=== PATIENT | male | born 1975 ===

== ENCOUNTER 2017-09-18 15:20 | Inpatient (IN) | payer BC, OTHER ==
--- NOTE | 2017-09-18 17:05 | C.PDOC ---
Addendum entered and electronically signed by Socorro Bailon PA 09/18/17 18: 59: Physician Patient Turnover Patient Signed Over To: Rashaun Rahman Handoff Comments: Pending detox admission Original Note: History Of Present Illness <Socorro Bailon - Last Filed: 09/18/17 18:58> <Rashaun Rahman - Last Filed: 09/18/17 19:52> 42yo male with history of alcoholism, comes to ER requesting detox from alcohol. Patient states that he has a history of gastritis and has had alcoholic gastric intermittently, but denies vomiting or abdominal pain at this time. Patient denies any suicidal or homicidal ideation. He offers no additional medical complaints. (Socorro Bailon) History Per: Patient History/Exam Limitations: no limitations <Socorro Bailon - Last Filed: 09/18/17 18:58> <Rashaun Rahman - Last Filed: 09/18/17 19:52> Time Seen by Provider: 09/18/17 16:19 Chief Complaint (Nursing): Abdominal Pain Past Medical History Reviewed: Historical Data, Nursing Documentation, Vital Signs - Medical History PMH: No Chronic Diseases Surgical History: No Surg Hx Family History: States: No Known Family Hx - Social History Hx Alcohol Use: Yes Hx Substance Use: No - Immunization History Hx Tetanus Toxoid Vaccination: No Hx Influenza Vaccination: No Hx Pneumococcal Vaccination: No <Socorro Bailon - Last Filed: 09/18/17 18:58> Vital Signs: Last Vital Signs Temp 98.4 F 09/18/17 15:35 Pulse 72 09/18/17 18:06 Resp 20 09/18/17 18:06 BP 114/78 09/18/17 18:06 Pulse Ox 99 09/18/17 18:39 Review Of Systems Constitutional: Negative for: Fever, Chills Cardiovascular: Negative for: Chest Pain Respiratory: Negative for: Shortness of Breath Gastrointestinal: Negative for: Abdominal Pain Psych: Negative for: Suicidal ideation <Socorro Bailon - Last Filed: 09/18/17 18:58> Physical Exam - Physical Exam Appears: Non-toxic Skin: Normal Color, No Rash Head: Atraumatic, Normacephalic Eye(s): bilateral: Normal Inspection Oral Mucosa: Moist, Other (alcohol on breath) Throat: No Erythema, No Exudate Neck: Normal ROM, Supple Chest: Symmetrical, No Tenderness Cardiovascular: Rhythm Regular, No Friction Rub, No Murmur Respiratory: Normal Breath Sounds Gastrointestinal/Abdominal: Bowel Sounds (active), Soft, No Tenderness, No Guarding, No Rebound Back: Normal Inspection, No CVA Tenderness Extremity: Normal ROM, No Pedal Edema, No Swelling Neurological/Psych: Oriented x3, Normal Speech Gait: Steady <Socorro Bailon - Last Filed: 09/18/17 18:58> ED Course And Treatment - Laboratory Results Result Diagrams: 09/18/17 17:55 09/18/17 17:36 O2 Sat by Pulse Oximetry: 99 (RA) Pulse Ox Interpretation: Normal Progress Note: Labs, UA and UDS ordered. Patient given ativan, and zofran. <Socorro Bailon - Last Filed: 09/18/17 18:58> - Laboratory Results Result Diagrams: 09/18/17 17:55 09/18/17 17:36 <Saphazel,Valdi - Last Filed: 09/18/17 19:52> Medical Decision Making <Socorro Bailon - Last Filed: 09/18/17 18:58> <SaphazelValdi - Last Filed: 09/18/17 19:52> Medical Decision Making: Patient reports that he is feeling anxious and having tremors, Ativan ordered. The patient is medically cleared for psych/detox eval and/or admission. (Socorro Bailon) Disposition - Disposition Disposition Time: 18:36 - POA Present On Arrival: None <Socorro Bailon - Last Filed: 09/18/17 18:58> Discussed With : Sadi Sloan Comment: accepted the pt on his service and took over the care at 7:52 PM Doctor Will See Patient In The: Hospital Counseled Patient/Family Regarding: Studies Performed, Diagnosis - POA Present On Arrival: Poor Glycemic Control <SaphazelValdi - Last Filed: 09/18/17 19:52> - Disposition Disposition: HOSPITALIZED Condition: FAIR Forms: [employer] (Lithuanian) - Clinical Impression Clinical Impression: Alcohol dependence - 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 - Scribe Statement The provider has reviewed the documentation as recorded by the Scribe <Socorro Bailon - Last Filed: 09/18/17 18:58> <Rashaun Rahman - Last Filed: 09/18/17 19:52> - Scribe Statement Shannon Jack Provider Attestation: All medical record entries made by the Janelleibe were at my direction and personally dictated by me. I have reviewed the chart and agree that the record accurately reflects my personal performance of the history, physical exam, medical decision making, and the department course for this patient. I have also personally directed, reviewed, and agree with the discharge instructions and disposition. (Socorro Bailon) Decision To Admit <Socorro Bailon - Last Filed: 09/18/17 18:58> - Pt Status Changed To: Hospital Disposition Of: Inpatient - Admit Certification Admit to Inpatient:: After my assessment, the patient will require hospitalization for at least two midnights. This is because of the severity of symptoms shown, intensity of services needed, and/or the medical risk in this patient being treated as an outpatient. - InPatient: Physician Admission Certification:: After my assessment, the patient will require hospitalization for at least two midnights. This is because of the severity of symptoms shown, intensity of services needed, and/or the medical risk in this patient being treated as an outpatient. - . Bed Request Type: Telemetry Admitting Physician: Sadi Sloan <Rashaun Rahman - Last Filed: 09/18/17 19:52> - . Patient Diagnosis: Alcohol dependence
[2017-09-18 17:52] LABS: ALB/GLOB RATIO 1.5 (1.0-2.1); ALBUMIN 4.9 g/dL (3.5-5.0); CALCIUM 9.6 mg/dl (8.6-10.4); GFR AFRICAN-AMERICAN > 60; GFR NON-AFRICAN AMERICAN > 60
[2017-09-18 17:54] LABS: URINE BACTERIA RARE (<OCC); URINE BILIRUBIN NEGATIVE (NEGATIVE); URINE BLOOD NEGATIVE (NEGATIVE); URINE CALCIUM OXALATE CRYSTALS OCC /hpf (<OCC); URINE CLARITY Hazy (Clear); URINE COLOR Amber (YELLOW); URINE GLUCOSE (UA) NORMAL (Normal); URINE LEUKOCYTE ESTERASE NEG Leu/uL (Negative); URINE PROTEIN 2+ mg/dL (NEGATIVE)
[2017-09-18 18:03] LABS: BASO % 0.6 % (0.0-2.0); EOS % 1.2 % (0.0-4.0); HEMOGLOBIN 14.5 g/dL (12.0-18.0); LYMPH # 1.2 K/uL (1.0-4.3); LYMPH % 31.2 % (20.0-40.0); MEAN CELL VOLUME 86.9 fL (80.0-94.0); MEAN CORPUSCULAR HGB CONC 34.6 g/dL (33.0-37.0); MEAN PLATELET VOLUME 7.3 fL (7.2-11.7); MONO # 0.3 K/uL (0.0-0.8); NEUT # 2.2 K/uL (1.8-7.0); NRBC % 0.1 % (0.0-2.0); RBC 4.82 Mil/uL (4.40-5.90); RED CELL DISTRIBUTION WIDTH 13.7 % (11.5-14.5); WHITE BLOOD COUNT 3.9 K/uL (4.8-10.8)
[2017-09-18 18:10] LABS: ALT/SGPT 117 U/L (21-72); AST/SGOT 227 U/L (17-59); BLOOD UREA NITROGEN 7 mg/dL (9-20)
[2017-09-18 18:28] LABS: BARBITURATES, UR NEGATIVE (NEGATIVE); OPIATES, UR NEGATIVE (NEGATIVE); PHENCYCLIDINE, UR NEGATIVE (NEGATIVE)
[2017-09-18 18:31] LABS: BENZODIAZEPINES, UR POSITIVE (NEGATIVE)
--- NOTE | 2017-09-18 20:11 | PCM.BM ---
<Komal Osuna - Last Filed: 09/18/17 20:10> Treatment Plan Problems - Problems identified on initial assessmt Potential for alcohol withdrawal Date Initiated: 09/18/17 Time Initiated: 20:11 Assessment reference: NA Status: Active Treatment assets and liabiliti Patient Assests: ADL independent, negotiates basic needs, cognitively intact Patient Liabilities: substance abuse (Alcohol) - Milieu Protocol Maintain good personal hygiene: daily Encourage regular showers, daily Remind patient to perform daily oral care, daily Assist patient to perform ADL's Conduct patient checks and document Observation sheet: Q15 minutes Maintain personal safety: every shift Educate patient to report safety concerns to staff, every shift Monitor environment for contraband/sharps Medication safety: Monitor for expected outcome, potential side effects: every shift, Assess barriers to learning: every shift, Assess readiness for medication education: every shift <Ludivina Sapp - Last Filed: 09/19/17 22:39> - Diagnosis (1) Alcohol dependence Status: Acute Interventions: 09/19/17 22:38 * Assess 7x/week regarding severity of withdrawal * Educate regarding risks, benefits, side effects and alternatives of medications * Use Motivational Interviewing for abstinence * Use CBT for relapse prevention * Medication management for withdrawal symptoms * Encourage medication assisted treatment *
[2017-09-18] MEDS: Aluminum Hydroxide/Magnesium Hydroxide Susp (30 mL) PO PRN (22:06)
[2017-09-19] MEDS: Multiple Vitamins Tab PO SCH (09:59)
--- NOTE | 2017-09-19 12:21 | PCM.PSYCH ---
Initial Psychiatric Evaluation - Initial Psychiatric Evaluation Type of Admission: Voluntary Legal Status: Capacity Chief Complaint (in patient's own words): "Too much alcohol" History of Present Illness and Precipitating Events: Pt is seen, chart reviewed, and case discussed. He is a 42 y/o [place] male, with 2 children age 17 and 9. 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 He is here because he wants to "stop drinking." Went on a family vacation to [facility] August 29 where he started drinking a lot for 10 days and kept drinking after he got back. Says that he's always had problems with alcoholism, started drinking socially at 24 and then it became worse. Says he drinks more than he eats. Denies and drug or tobacco use. He goes to AA meetings. Has never been to detox, tried to go into rehab this time but was told he had to come to detox first. Denies DUI's or any legal trouble. Past psych hx: has anxiety, which he says is when he starts drinking, and depression Past medical hx: denies Family psych hx: denies, but does say that his cousin also has a drinking problem Current Medications: Active Medications Generic Name Dose Route Start Last Admin Trade Name Freq PRN Reason Stop Dose Admin Al Hydrox/Mg Hydrox/Simethicone 30 ml 09/18/17 21:57 09/18/17 22:06 Maalox 30 Ml PO 30 ml Q8 PRN Administration Indigestion / Heartburn Clonidine HCl 0.1 mg 09/19/17 08:54 Catapres PO Q4H PRN Symptoms of alcohol withdrawl Folic Acid 1 mg 09/19/17 10:00 09/19/17 10:00 Folic Acid PO 1 mg DAILY MAVIS Administration Lorazepam 1 mg 09/19/17 08:54 Ativan PO Q4H PRN Symptoms of alcohol withdrawl Lorazepam 2 mg 09/19/17 09:00 09/19/17 09:59 Ativan PO 09/24/17 08:59 2 mg Q6H MAVIS Administration Taper Multivitamins 1 tab 09/19/17 10:00 09/19/17 09:59 Hexavitamin PO 1 tab DAILY MAVIS Administration Ondansetron HCl 4 mg 09/18/17 21:57 09/19/17 11:51 Zofran Tab PO 4 mg Q8 PRN Administration Nausea/Vomiting Thiamine HCl 100 mg 09/19/17 10:00 09/19/17 09:59 Vitamin B1 Tab PO 100 mg DAILY MAVIS Administration Trazodone HCl 100 mg 09/19/17 22:00 Desyrel PO HS PRN Insomnia Past Psychiatric History - Past Psychiatric History Previous Treatment History: None Pertinent Medical Hx (Current Medical&Sleep Prob, Allergies): Allergies Allergy/AdvReac Type Severity Reaction Status Date / Time No Known Allergies Allergy Verified 09/18/17 15:38 No Known Home Med 09/18/17 Review of Systems - Neurological Neurological: Tremor - Psychiatric Psychiatric: Abnormal Sleep Pattern, Anxiety, Change in Appetite, Depression, Difficulty Concentrating. absent: Hallucinations, Homicidal Ideation, Suicidal Ideation Mental Status Examination - Personal Presentation Personal Presentation: Looks stated age - Affect Affect: Constricted - Motor Activity Motor Activity: Calm - Reliability in Providing Information Reliability in Providing Information: Good - Speech Speech: Organized - Mood Mood: Depressed, Anxious - Formal Thought Process Formal Thought Process: No Impairment - Cognitive Functions Orientation: Person, Place, Situation, Time Sensorium: Alert Attention/Concentration: Attentive Estimate of Intelligence: Average Judgement: Intact, as evidence by: Insight regarding need for hospitalization Memory: Recent intact, as evidence by: Ability to recall events of the day, Remote intact, as evidenced by: Abilit to recall sig. life events - Risk Risk: Withdrawal, Diminished functioning - Strength & Assets Inventory Strength & Assets Inventory: Cooperative - Limitations Limitations: Living alone DSM 5 DX - DSM 5 DSM 5 Diagnosis: Alcohol withdrawal Alcohol use disorder, severe Anxiety disorder, unspecified - Recommended/Plan of Treatment Treatment Recommendations and Plan of Treatment: Taper with Ativan Gabapentin for augmentation if needed As needed medications All risks, benefits and alternatives of the meds discussed, and the pt agreed and understood. Attend groups and activities Supportive therapy and psychoeducation [place] for abstinence CBT for relapse prevention Encourage MAT Refer to rehab or IOP, and self-help groups 33 min Projected ELOS: 5 days Prognosis: good
[2017-09-19] MEDS: Aluminum Hydroxide/Magnesium Hydroxide Susp (30 mL) PO PRN (14:03)
[2017-09-20] MEDS: Multiple Vitamins Tab PO SCH (10:58)
--- NOTE | 2017-09-20 11:48 | PCM.PYCHPN ---
Psychiatric Progress Note - Psychiatric Progress Note Patient seen today, length of contact: 15 min Patient Chief Complaint: I am still withdrawing.' Problems Identified/Issues Discussed: Patient seen and evaluated, chart reviewed and discussed with the nurse. He reports improvement in the withdrawal symptoms. He denies any AVH or any paranoia. Patient is compliant with medications and denies any side effects. Symptoms are improving but need more time to stabilize. Support and psychoeducation given. Medication Change: Yes Medical Record Reviewed: Yes Mental Status Examination - Cognitive Function Orientation: Person, Place, Situation, Time Memory: Intact Attention: WNL Concentration: Poor Association: WNL Fund of Knowledge: Poor - Mood Mood: Depressed, Anxious - Affect Affect: Constricted - Speech Speech: Soft - Formal Thought Process Formal Thought Process: No Impairment - Suicidal Ideation Suicidal Ideation: No - Homicidal Ideation Homicidal Ideation: No Goal/Treatment Plan - Goal/Treatment Plan Need for Continued Stay: Discharge may exacerbated symptoms, Severe functional impairment Progress Toward Problem(s) and Goals/Treatment Plan: Alcohol withdrawal Alcohol use disorder, severe Anxiety disorder, unspecified Taper with Ativan Gabapentin for augmentation if needed As needed medications All risks, benefits and alternatives of the meds discussed, and the pt agreed and understood. Attend groups and activities Supportive therapy and psychoeducation [place] for abstinence CBT for relapse prevention Encourage MAT Refer to rehab or IOP, and self-help groups - Smoking Cessation Smoking Cessation Initiated: No
[2017-09-21] MEDS: Multiple Vitamins Tab PO SCH (09:11)
--- NOTE | 2017-09-21 14:13 | PCM.PYCHPN ---
Psychiatric Progress Note - Psychiatric Progress Note Patient seen today, length of contact: 16 min Patient Chief Complaint: "Better" Problems Identified/Issues Discussed: The pt is seen, chart reviewed, case discussed with staff. Support and psychoeducation given, CBT and [place] used briefly No new symptoms reported, improving slowly and needs more time No SEs from medications, risks discussed. After care discussed Medication Change: Yes (detox changes daily) Medical Record Reviewed: Yes Mental Status Examination - Cognitive Function Orientation: Person, Place, Situation, Time Memory: Intact Attention: WNL Concentration: Poor Association: WNL Fund of Knowledge: Poor - Mood Mood: Depressed, Anxious - Affect Affect: Constricted - Speech Speech: Soft - Formal Thought Process Formal Thought Process: No Impairment - Suicidal Ideation Suicidal Ideation: No - Homicidal Ideation Homicidal Ideation: No Goal/Treatment Plan - Goal/Treatment Plan Need for Continued Stay: Discharge may exacerbated symptoms, Severe functional impairment Progress Toward Problem(s) and Goals/Treatment Plan: Taper with Ativan Gabapentin for augmentation if needed As needed medications All risks, benefits and alternatives of the meds discussed, and the pt agreed and understood. Attend groups and activities Supportive therapy and psychoeducation [place] for abstinence CBT for relapse prevention Encourage MAT Refer to rehab or IOP, and self-help groups Repaet labs and consider Naltrexone if normal Estimated Date of D/C: 09/24/17
[2017-09-22] MEDS: Multiple Vitamins Tab PO SCH (08:59)
--- NOTE | 2017-09-22 11:44 | PCM.PYCHPN ---
Psychiatric Progress Note - Psychiatric Progress Note Patient seen today, length of contact: 16 min Patient Chief Complaint: I am still withdrawing.' Problems Identified/Issues Discussed: Patient seen and evaluated, chart reviewed and discussed with the nurse. He reports improvement in the withdrawal symptoms but still reports anxiety, headaches and sweats. He denies any AVH or any paranoia. Patient is compliant with medications and denies any side effects. Symptoms are improving but need more time to stabilize. Support and psychoeducation given. Medication Change: Yes (detox changes daily) Medical Record Reviewed: Yes Mental Status Examination - Cognitive Function Orientation: Person, Place, Situation, Time Memory: Intact Attention: WNL Concentration: Poor Association: WNL Fund of Knowledge: Poor - Mood Mood: Depressed, Anxious - Affect Affect: Constricted - Speech Speech: Soft - Formal Thought Process Formal Thought Process: No Impairment - Suicidal Ideation Suicidal Ideation: No - Homicidal Ideation Homicidal Ideation: No Goal/Treatment Plan - Goal/Treatment Plan Need for Continued Stay: Discharge may exacerbated symptoms, Severe functional impairment Progress Toward Problem(s) and Goals/Treatment Plan: Alcohol withdrawal Alcohol use disorder, severe Anxiety disorder, unspecified Taper with Ativan Gabapentin for augmentation if needed As needed medications All risks, benefits and alternatives of the meds discussed, and the pt agreed and understood. Attend groups and activities Supportive therapy and psychoeducation [place] for abstinence CBT for relapse prevention Encourage MAT Refer to rehab or IOP, and self-help groups Estimated Date of D/C: 09/24/17
[2017-09-22 12:59] VITALS: RESP 18
[2017-09-22 17:48] LABS: ALB/GLOB RATIO 1.7 (1.0-2.1); ALBUMIN 4.8 g/dL (3.5-5.0); ALT/SGPT 394 U/L (21-72); AST/SGOT 397 U/L (17-59); BLOOD UREA NITROGEN 12 mg/dL (9-20); CALCIUM 9.5 mg/dl (8.6-10.4); GFR AFRICAN-AMERICAN > 60; GFR NON-AFRICAN AMERICAN > 60
[2017-09-23] MEDS: Multiple Vitamins Tab PO SCH (09:01)
--- NOTE | 2017-09-23 09:44 | PCM.PYCHPN ---
Psychiatric Progress Note - Psychiatric Progress Note Patient seen today, length of contact: 16 min Patient Chief Complaint: I am feeling little better.' Problems Identified/Issues Discussed: Patient seen and evaluated, chart reviewed and discussed with the nurse. He reports some improvement in his mood. He reports some improvement in the withdrawal symptoms but still reports anxiety, headaches and sweats. He denies any AVH or any paranoia. Patient is compliant with medications and denies any side effects. Symptoms are improving but need more time to stabilize. Support and psychoeducation given. Medication Change: Yes (detox changes daily) Medical Record Reviewed: Yes Mental Status Examination - Cognitive Function Orientation: Person, Place, Situation, Time Memory: Intact Attention: WNL Concentration: Poor Association: WNL Fund of Knowledge: Poor - Mood Mood: Depressed, Anxious - Affect Affect: Constricted - Speech Speech: Soft - Formal Thought Process Formal Thought Process: No Impairment - Suicidal Ideation Suicidal Ideation: No - Homicidal Ideation Homicidal Ideation: No Goal/Treatment Plan - Goal/Treatment Plan Need for Continued Stay: Discharge may exacerbated symptoms, Severe functional impairment Progress Toward Problem(s) and Goals/Treatment Plan: Alcohol withdrawal Alcohol use disorder, severe Anxiety disorder, unspecified Taper with Ativan Gabapentin for augmentation if needed As needed medications All risks, benefits and alternatives of the meds discussed, and the pt agreed and understood. Attend groups and activities Supportive therapy and psychoeducation [place] for abstinence CBT for relapse prevention Encourage MAT Refer to rehab or IOP, and self-help groups Estimated Date of D/C: 09/24/17
[2017-09-24 06:12] VITALS: BP 130/81; PULSE 75; TEMP 98.1; O2SAT 97
--- NOTE | 2017-09-24 08:50 | PCM.PYCHDC ---
Mental Status Examination - Mental Status Examination Orientation: Person, Place, Situation, Time Memory: Intact Mood: Anxious Affect: Constricted Speech: Appropriate Attention: WNL Concentration: WNL Association: WNL Fund of Knowledge: WNL Formal Thought Process: No Impairment Suicidal Ideation: No Current Homicidal Ideation?: No Discharge Summary - Discharge Note Reason for Hospitalization: Alcohol detox Consultations:: List each consultation separately and include: 1. Reason for request. 2. Findings. 3. Follow-up Summary of Hospital Course include:: 1. Description of specific treatment plan utilized for patients during their course of treatmen. 2. Summarize the time- course for resolution of acute symptoms and/or regressed behaviors. 3. Describe issues identified and worked on during hospitalization. 4. Describe medication utilized. 5. Describe medical problems identified and treated. 6. Reassessment of suicide risk Summary of Hospital Course: Pt is seen, chart reviewed, and case discussed. On admission: He is a 42 y/o [place] male, with 2 children age 17 and 9. 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 He is here because he wants to "stop drinking." Went on a family vacation to [place] August 29 where he started drinking a lot for 10 days and kept drinking after he got back. Says that he's always had problems with alcoholism, started drinking socially at 24 and then it became worse. Says he drinks more than he eats. Denies and drug or tobacco use. He goes to meetings. Has never been to detox, tried to go into rehab this time but was told he had to come to detox first. Denies DUI's or any legal trouble. Past psych hx: has anxiety, which he says is when he starts drinking, and depression Past medical hx: denies Family psych hx: denies, but does say that his cousin also has a drinking problem Hospital course: The pt was admitted and started on treatment with psychotherapy, support, psychoeducation and medications. AR and CBT used. The pt attended groups and activities, as well as milieu therapy. All the risks and benefits of medications are discussed and the patient understood and agreed. The pt improved with the treatments provided. After care discussed with the patient. He will go to and [facility]. He could not use naltrexone b/c his liver is still elevated. He will get a test in 2 weeks - Final Diagnosis (DSM 5) Condition upon Discharge: FAIR DSM 5: Alcohol withdrawal Alcohol use disorder, severe Anxiety disorder, unspecified Disposition: HOME/ ROUTINE Follow-up Treatment Plan: Continue below medications after discharge. Follow after care plan as discussed. Use relapse prevention skills Return to ER or call 911 if suicidal, homicidal or symptoms relapse. Stay away from stress, alcohol and drugs. See primary doctor regularly and get labs. Prescriptions/Medication Reconciliation: traZODone [Desyrel] 100 mg PO HS PRN #30 tab PRN Reason: Insomnia - Smoking Cessation Smoking Cessation Medication prescribed: No - Antipsychotic Medications Pt discharged on 2 or more routine antipsychotic medications: No
[2017-09-24] MEDS: Multiple Vitamins Tab PO SCH (09:13)
== END 2017-09-24 09:00 | disposition home or self-care (01) | DRG 897 ==
LOC: C.ER 15:20 → C.7D 19:49
PROVIDERS: ADMIT Psychiatry & Neurology Psychiatry; ATTEND Psychiatry & Neurology Psychiatry
PROC: GZ56ZZZ Individual Psychotherapy, Supportive (ICD-10-PCS; principal; 2017-09-18)
DX: F10.230 Alcohol dependence with withdrawal, uncomplicated (principal); F41.9 Anxiety disorder, unspecified; F10.220 Alcohol dependence with intoxication, uncomplicated; Y90.6 Blood alcohol level of 120-199 mg/100 ml; F19.10 Other psychoactive substance abuse, uncomplicated